=== PATIENT | male | born 1955 | race Two or more races ===

== ENCOUNTER 2021-03-21 08:00 | Day surgery (SDC) | payer OTHER ==
[~2021-03-21] VITALS: Ht 172.7 cm; Wt 81.6 kg
[~2021-03-21 08:00] MED LIST: EXFORGE HCT 101 EAC2 PO; METFORMIN HCL500 M3 PO; NORVASC10 MG PO; SYNTHROID50 MCG PO
[2021-03-21] MEDS ORDERED: MOXIFLOXACIN H400 MG PO (16:39)
[2021-03-21] MEDS ORDERED: METRONIDAZOLE500 MG PO (16:39)
[2021-03-21] MEDS ORDERED: PROTONIX40 MG PO (16:40)
[2021-03-21] MEDS ORDERED: ULTRACET PO (16:40)
== END 2021-03-21 20:35 | disposition home or self-care (01) ==
LOC: CIR.AMB 08:00 → EDSTATUS 10:45 → SEC-K 14:59 → O/R 14:59 → CIR.AMB 20:35
PROVIDERS: ATTEND General Practice
DX: K61.0 Anal abscess (principal)